=== PATIENT | male | born 1995 | race African-American/Black ===

== ENCOUNTER 2020-08-19 12:11 | Emergency (ER) | payer OTHER ==
[2020-08-19 15:05] VITALS: BP 122/68
== END 2020-08-19 15:08 | disposition home or self-care (01) | DRG 605 ==
LOC: ED 12:11
DX: S00.83XA Contusion of other part of head, initial encounter (principal); W50.0XXA Accidental hit or strike by another person, initial encounter; Y93.67 Activity, basketball; Y92.149 Unspecified place in prison as the place of occurrence of the external cause